=== PATIENT | female | born 1950 ===

== ENCOUNTER 2018-11-14 11:17 | Emergency (ER) | payer MEDICARE ==
[2018-11-14 11:22] VITALS: BMI 23.0
[2018-11-14 11:24] VITALS: PULSE 78; O2SAT 98
--- NOTE | 2018-11-14 12:35 | ED PDOC ---
HPI: General Adult Time Seen by Provider: 11/14/18 11:42 Chief Complaint (Nursing): Rib Injury Chief Complaint (Provider): LEFT CHEST WALL PAIN History Per: Patient (68 Y/O FEMALE HERE WITH LEFT LOWER CHEST WALL PAIN WORSE WITH MOVEMENT/INSPIRATION AND AFTER FALLING 1 WEEK AGO. 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 ATTEMPT USE OF ADVIL/ALLEVE BUT DOES NOT HELP AT NIGHT.) Past Medical History Reviewed: Historical Data, Nursing Documentation, Vital Signs Vital Signs: Last Vital Signs Temp 98.2 F 11/14/18 11:22 Pulse 78 11/14/18 11:22 Resp 17 11/14/18 11:22 BP 165/91 H 11/14/18 11:22 Pulse Ox 98 11/14/18 11:22 Primary Care Provider: Kacey Holguin - Medical History PMH: HTN - Surgical History Surgical History: Tonsillectomy - Family History Family History: States: No Known Family Hx - Home Medications Home Medications: Ambulatory Orders Medication Instructions Recorded Naproxen 375 mg PO Q8 PRN #21 tablet 11/14/18 oxyCODONE/Acetaminophen [Percocet 1 ea PO Q6 PRN #5 tab 11/14/18 5/325 mg Tab] - Allergies Allergies/Adverse Reactions: Allergies Allergy/AdvReac Type Severity Reaction Status Date / Time No Known Allergies Allergy Verified 11/14/18 11:39 Review of Systems ROS Statement: Except As Marked, All Systems Reviewed And Found Negative Physical Exam - Reviewed Nursing Documentation Reviewed: Yes Vital Signs Reviewed: Yes - Physical Exam Appears: Positive for: Well, Non-toxic, No Acute Distress Head Exam: Positive for: ATRAUMATIC, NORMAL INSPECTION, NORMOCEPHALIC Skin: Positive for: Normal Color, Warm, DRY Eye Exam: Positive for: EOMI, Normal appearance, PERRL ENT: Positive for: Normal ENT Inspection Neck: Positive for: Normal, Painless ROM Cardiovascular/Chest: Positive for: Regular Rate, Rhythm. Negative for: Chest Non Tender (TENDERNESS ELICITED LOWER RIB CAGE LATERALLY) Respiratory: Positive for: CNT, Normal Breath Sounds Gastrointestinal/Abdominal: Positive for: Normal Exam, Soft Back: Positive for: Normal Inspection Extremity: Positive for: Normal ROM Neurological/Psych: Positive for: Awake, Alert, Normal Tone - ECG O2 Sat by Pulse Oximetry: 98 - Progress ED Course And Treament: cxr: ? left lower rib fx noted Incentive spirometry instructions given. Disposition - Clinical Impression Clinical Impression: Rib fracture - Patient ED Disposition Is Patient to be Admitted: No - Disposition Disposition: Routine/Home Disposition Time: 12:33 Condition: FAIR Prescriptions: Naproxen 375 mg PO Q8 PRN #21 tablet PRN Reason: Pain, Moderate (4-7) oxyCODONE/Acetaminophen [Percocet 5/325 mg Tab] 1 ea PO Q6 PRN #5 tab PRN Reason: Pain, Severe (8-10) Instructions: Rib Fracture (DC) Forms: [facility] ED School/Work Excuse
[2018-11-14 12:48] VITALS: BP 169/85; RESP 20
[2018-11-14 12:49] VITALS: TEMP 97.6
--- NOTE | 2018-11-14 14:15 | RAD ---
Date of service: 11/14/2018 PROCEDURE: Radiographs of the Chest and Left Ribs. HISTORY: rib injury COMPARISON: None available. TECHNIQUE: Frontal radiograph of the chest and multiple oblique radiographs of the left ribs were obtained. 4 views obtained. FINDINGS: LEFT RIBS: No fracture or focal lesion visualized. LUNGS: Clear. PLEURA: No pneumothorax or pleural fluid. CARDIOVASCULAR: Normal cardiac size. No pulmonary vascular congestion. No aortic atherosclerotic calcification present OTHER FINDINGS: None. IMPRESSION: Unremarkable radiographs of the chest and left ribs. No left rib fracture.
== END 2018-11-14 13:00 | disposition home or self-care (01) ==
LOC: H.ER 11:17
DX: S22.39XA Fracture of one rib, unspecified side, initial encounter for closed fracture (principal); W19.XXXA Unspecified fall, initial encounter